=== PATIENT | female | born 1975 | race Asian ===

== ENCOUNTER 2018-04-07 16:02 | Emergency (ER) | payer MEDICAID, OTHER ==
[~2018-04-07] VITALS: Ht 162.6 cm; Wt 113.9 kg
[2018-04-07 16:19] VITALS: BP 108/69
--- NOTE | 2018-04-07 16:24 | NUR ---
pt to lobby awaiting available room with steady gait. GCS=15.
--- NOTE | 2018-04-07 21:55 | NUR ---
PATIENT LEFT WITHOUT BEING SEEN BY DR. Garcia. NO FURTHER CARE PROVIDED FOR PATIENT.
== END 2018-04-07 21:55 | disposition left against medical advice (07) ==
LOC: MED 16:02
DX: R05 Cough (principal); R09.81 Nasal congestion; Z53.21 Procedure and treatment not carried out due to patient leaving prior to being seen by health care provider

== ENCOUNTER 2018-09-02 19:47 | Emergency (ER) | payer OTHER ==
[~2018-09-02] VITALS: Ht 165.1 cm; Wt 118.6 kg
--- NOTE | 2018-09-02 20:25 | NUR ---
PT TO ER BED 4.
[2018-09-02 20:26] VITALS: BP 136/65
--- NOTE | 2018-09-02 20:30 | NUR ---
43 YO F BIB SELF FOR COLD SYMPTOMS X 2 DAYS. PT WITH RHINORRHEA, CONGUSTION, WATERY EYES. RR EVEN AND UNLABORED, BS ACTIVE X4, ABD SOFT NON TENDER, PT DENIES ANY SOB, CP, COUGH, FEVER AT THIS TIME. ER MD MADE AWAREWILL CONTINUE TO MONITOR .
--- NOTE | 2018-09-02 20:40 | NUR ---
PA AT BEDSIDE FOR PT EVALUATION
[2018-09-02] MEDS ORDERED: DEXAMETHASONE 10 MG/ML VIAL IM ONE ×2 (20:45→20:55)
[2018-09-02] MEDS ORDERED: DEXAMETHASONE 4 MG/ML VIAL ONE (21:04)
[2018-09-02 21:19] VITALS: BP 134/64
--- NOTE | 2018-09-02 21:19 | NUR ---
Patient discharged with v/s stable. Written and verbal after care instructions given and explained. Patient alert, oriented and verbalized understanding of instructions. Ambulatory with steady gait. All questions addressed prior to discharge. ID band removed. Patient advised to follow up with PMD. Rx of IBUPROFRN given. Patient educated on indication of medication including possible reaction and side effects. Opportunity to ask questions provided and answered.
== END 2018-09-02 21:19 | disposition home or self-care (01) ==
LOC: MED 19:47
DX: J06.9 Acute upper respiratory infection, unspecified (principal)
CPT/HCPCS: 36415; 87804; 96372; 99284; J1100

== ENCOUNTER 2018-12-07 20:58 | Emergency (ER) | payer OTHER ==
[~2018-12-07] VITALS: Ht 162.6 cm; Wt 119.7 kg
[2018-12-07 21:03] VITALS: BP 126/72
--- NOTE | 2018-12-07 21:10 | NUR ---
TO ER BED 4
--- NOTE | 2018-12-07 21:31 | NUR ---
43 Y/O W/C/O C/O HEADACHE X 1 WEEK, PT TOOK IBUPROFEN WITH NO EFFECT, PAIN 5/10. PT DENIES N/V/D -FACIAL DROOP, -NUMBNESS; AAOX4, PERRL, WITH EVEN AND STEADY GAIT; LUNGS CLEAR BL, BREATHING UNLABORED; HR EVEN AND REGULAR, BL PERIPHERAL PULSES PRESENT; PT DENIES ANY FEVER, CP, SOB, OR COUGH AT THIS TIME; PT STATES 5/10 PAIN AT THIS TIME; VSS; PATIENT POSITIONED FOR COMFORT; HOB ELEVATED; BEDRAILS UP X2; BED DOWN. MED HX: NONE
--- NOTE | 2018-12-07 21:44 | NUR ---
DR. FERNANDES AT BEDSIDE FOR EVALUATION.
--- NOTE | 2018-12-07 22:43 | NUR ---
Patient discharged with v/s stable. Written and verbal after care instructions given and explained. Patient alert, oriented and verbalized understanding of instructions. Ambulatory with steady gait. All questions addressed prior to discharge. ID band removed. Patient advised to follow up with PMD. Rx of Motrin, and Tramadol Hydrochloride given. Patient educated on indication of medication including possible reaction and side effects. Opportunity to ask questions provided and answered.
[2018-12-07 22:45] VITALS: BP 137/81
== END 2018-12-07 22:44 | disposition home or self-care (01) ==
LOC: MED 20:58
DX: G43.909 Migraine, unspecified, not intractable, without status migrainosus (principal)
CPT/HCPCS: 70450; 81002; 81025; 99284

== ENCOUNTER 2019-06-25 04:14 | Emergency (ER) | payer SELFPAY ==
[~2019-06-25] VITALS: Ht 162.6 cm; Wt 117.0 kg
--- NOTE | 2019-06-25 04:19 | NUR ---
PT TAKEN TO BED 4
[2019-06-25 04:20] VITALS: BP 134/78
--- NOTE | 2019-06-25 04:31 | NUR ---
EKG PERFORMED AT BEDSIDE
--- NOTE | 2019-06-25 04:43 | NUR ---
44 Y/O FEMALE BIB SELF C/O SHORTNESS OF BREATH AND TIGHT CHEST PAIN OF 9/10 SINCE YESTERDAY. VSS. WHEEZES HEARD THROUGHOUT. PATIENT STATES THAT SHE HAS A PRODUCTIVE COUGH WITH YELLOW SPUTUM. PATIENT REPOSITIONED FOR COMFORT. SIDE RAILS X1. EMRD TO SEE PT. PMH:NONE ALLERGIES: NONE RX NONE
[2019-06-25] MEDS ORDERED: ALBUTEROL SULFATE/IPRATROPIU 3 ML SOL IH ONE ×2 (04:50→05:15)
[2019-06-25] MEDS ORDERED: ALBUTEROL 0.083% 2.5 MG/3 ML NEBU INH ONE ×2 (04:50→05:15)
--- NOTE | 2019-06-25 04:56 | NUR ---
RT. AT BEDSIDE.
[2019-06-25] MEDS ORDERED: predniSONE 20 MG TAB PO ONE (05:15)
--- NOTE | 2019-06-25 06:01 | NUR ---
Dr. Mcintyre examining patient.
[2019-06-25 06:50] VITALS: BP 120/69
--- NOTE | 2019-06-25 06:50 | NUR ---
Patient discharged with v/s stable. Written and verbal after care instructions given and explained. Patient alert, oriented and verbalized understanding of instructions. Ambulatory with steady gait. All questions addressed prior to discharge. ID band removed. Patient advised to follow up with PMD. Rx of ALBUTEROL 90MCG INHALATION AEROSOL AND PREDNISONE 20 MG TABLETS given. Patient educated on indication of medication including possible reaction and side effects. Opportunity to ask questions provided and answered.
== END 2019-06-25 06:50 | disposition home or self-care (01) ==
LOC: MED 04:14
DX: J45.901 Unspecified asthma with (acute) exacerbation (principal)
CPT/HCPCS: 81002; 81025; 93005; 94640; 99284; J7512; J7613; J7620